=== PATIENT | female | born 1995 | race Caucasian/White ===

== ENCOUNTER 2025-02-02 15:58 | Emergency (ER) | payer OTHER ==
[~2025-02-02] VITALS: Ht 167.6 cm; Wt 59.0 kg
[2025-02-02 16:04] VITALS: O2SAT 97
[2025-02-02] MEDS: MECLIZINE 25MG TABLET PO ONE (17:00)
[2025-02-02] MEDS: ONDANSETRON 4MG ODT PO STA (17:00)
[2025-02-02] MEDS: KETOROLAC 30MG/ML VIAL IV STA (18:12)
[2025-02-02] MEDS: SODIUM CHLORIDE 0.9% 1,000 ML IV ONE (18:13)
[2025-02-02] MEDS: ONDANSETRON HCL 4MG/2ML INJ IV STA (18:13)
[2025-02-02 18:28] LABS: BASOPHILS % 0.2 % (0.0-2.0); HEMATOCRIT. 40.7 % (36.0-48.0); HEMOGLOBIN. 13.3 g/dL (12.0-16.0); LYMPHOCYTES % 7.9 % (20.0-50.0); MEAN CORPUSCULAR HGB CONC 32.7 g/dL (31.0-37.0); MEAN CORPUSCULAR VOLUME 91.8 fL (81.0-99.0); MEAN PLATELET VOLUME 9.1 fl (7.4-10.4); MONOCYTES % 3.9 % (2.0-8.0); PLATELET 380 x1000/uL (130-400); RED BLOOD CELL COUNT 4.43 mill/uL (4.2-5.4); RED CELL DISTRIBUTION WIDTH 14.4 % (11.6-14.6); WHITE BLOOD COUNT 13.1 x1000/uL (4.5-11.0)
[2025-02-02 18:38] LABS: HCG SCREEN NEGATIVE
[2025-02-02 18:42] LABS: CHLORIDE 104 mEq/L (98-107); POTASSIUM 3.9 mEq/L (3.5-5.1); SODIUM 138 mEq/L (136-145)
[2025-02-02 18:43] LABS: CALCIUM 9.6 mg/dL (8.7-10.4); CARBON DIOXIDE 21 mEq/L (21-32)
[2025-02-02 18:48] LABS: CREATININE 0.9 mg/dL (0.6-1.0); GLUCOSE 155 mg/dL (70-105); UREA NITROGEN BLOOD 11 mg/dL (9-23)
[2025-02-02] MEDS ORDERED: ONDA-239 PO (18:55)
[2025-02-02] MEDS ORDERED: MECL-299 PO (18:56)
[2025-02-02 19:13] VITALS: BP 106/72; PULSE 72; RESP 18; TEMP 36.9; O2SAT 99
== END 2025-02-02 19:19 | disposition home or self-care (01) ==
LOC: ER 15:58
DX: H81.10 Benign paroxysmal vertigo, unspecified ear (principal); F41.9 Anxiety disorder, unspecified; F32.A Depression, unspecified; Z79.899 Other long term (current) drug therapy
CPT/HCPCS: 80048; 84703; 83690; 85025; 36415; 96361; 96374; 96375; 99284; J8597; Q0162; J1885; J2405; J7030; Z7610 ×2